=== PATIENT | female | born 1995 | race American Indian/Alaskan Native ===

== ENCOUNTER 2016-11-03 22:11 | Emergency (ER) | payer OTHER ==
[2016-11-03 22:26] VITALS: BP 137/67
[2016-11-03 22:57] LABS: CHLORIDE,CL 106 mmol/L (101-111); SODIUM,NA 139 mmol/L (135-145)
--- NOTE | 2016-11-03 23:19 | EDM.PDOC ---
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 The patient reports she started to have some brownish discharge last Wednesday evening. 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 The patient's HCG level was 3289 based on the clinic lab results from today. Onset: Today Duration: Constant, Getting Worse Location: Reports: Abdomen (LLQ) Severity: Moderate Improves with: Reports: None Worsens with: Reports: None Left Lower Abdomen Pain Score (Numeric/FACES): 6 - Related Data Allergies Allergy/AdvReac Type Severity Reaction Status Date / Time No Known Allergies Allergy Verified 11/03/16 22:22 Home Meds: Home Meds . 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 LMP 09/16/16 Musculoskeletal History: Reports: None Neurological History: Reports: None Psychiatric History: Reports: None Endocrine/Metabolic History: Reports: None Hematologic History: Reports: None Immunologic History: Reports: None Oncologic (Cancer) History: Reports: None Dermatologic History: Reports: None ED ROS GENERAL - Review of Systems Review Of Systems: ROS reveals no pertinent complaints other than HPI. ED EXAM, GI/ABD - Physical Exam Exam: See Below Exam Limited By: No Limitations General Appearance: Alert, WD/WN, Moderate Distress Eyes: Bilateral: Normal Appearance, EOMI Ears: Normal External Exam, Normal Canal, Hearing Grossly Normal, Normal TMs Throat/Mouth: Normal Inspection, Normal Lips, Normal Teeth, Normal Gums, Normal Oropharynx, Normal Voice, No Airway Compromise Head: Atraumatic, Normocephalic Neck: Normal Inspection, Supple, Non-Tender, Full Range of Motion Respiratory/Chest: No Respiratory Distress, Lungs Clear, Normal Breath Sounds, No Accessory Muscle Use, Chest Non-Tender Cardiovascular: Normal Peripheral Pulses, Regular Rate, Rhythm, No Edema, No Gallop, No JVD, No Murmur, No Rub GI/Abdominal Exam: Normal Bowel Sounds, No Organomegaly, No Distention, No Abnormal Bruit, No Mass, Pelvis Stable, Tender (left lower quadrant) (Female) Exam: Deferred Rectal (Female) Exam: Deferred Back Exam: Normal Inspection, Full Range of Motion, NT Extremities: Normal Inspection, Normal Range of Motion, Non-Tender, Normal Capillary Refill, No Pedal Edema Neurological: Alert, Oriented, CN II-XII Intact, Normal Cognition, Normal Gait, Normal Reflexes, No Motor/Sensory Deficits Psychiatric: Normal Affect, Normal Mood Skin Exam: Warm, Dry, Intact, Normal Color, No Rash Lymphatic: No Adenopathy Course - Vital Signs Last Recorded V/S: Last Vital Signs Temp 36.3 C 11/03/16 22:23 Pulse 66 11/03/16 22:23 Resp 18 11/03/16 22:23 BP 137/67 11/03/16 22:23 Pulse Ox 99 11/03/16 22:23 - Orders/Labs/Meds Orders: Active Orders 24 hr Category Date Time Status OB Ltd 1 or More Fetus [US] Urgent Exams 11/03/16 23:15 Ordered OB Transvaginal [US] Urgent Exams 11/03/16 23:15 Ordered Labs: Laboratory Tests 11/03/16 11/03/16 11/03/16 Range/Units 22:33 22:33 22:33 WBC 8.4 (5.0-10.0) 10^3/uL RBC 4.10 L (4.2-5.4) 10^6/uL Hgb 11.7 L (12.0-16.0) g/dL Hct 35.2 L (37.0-47.0) % MCV 85.9 (80-100) fL MCH 28.5 (27.0-34.0) pg MCHC 33.2 (33.0-35.0) g/dL Plt Count 247 (150-450) 10^3/uL Neut % (Auto) 58.9 (42.2-75.2) % Lymph % (Auto) 29.6 (20.5-50.1) % Glynn % (Auto) 9.2 H (2-8) % Eos % (Auto) 2.3 (1.0-3.0) % Baso % (Auto) 0.0 (0.0-1.0) % Sodium 139 (135-145) mmol/L Potassium 3.5 L (3.6-5.0) mmol/L Chloride 106 (101-111) mmol/L Carbon Dioxide 23.0 (21.0-31.0) mmol/L Anion Gap 13.5 BUN 9 (7-18) mg/dL Creatinine 0.9 (0.6-1.3) mg/dL Est Cr Clr Drug Dosing 86.45 mL/min Estimated GFR (MDRD) > 60 BUN/Creatinine Ratio 10.00 Glucose 109 H (74-105) mg/dL Calcium 8.9 (8.4-10.2) mg/dl Total Bilirubin 0.4 (0.2-1.0) mg/dL AST 28 (10-42) IU/L ALT 25 (10-60) IU/L Alkaline Phosphatase 43 (42-121) IU/L Total Protein 6.9 (6.7-8.2) g/dl Albumin 4.0 (3.2-5.5) g/dl Globulin 2.9 Albumin/Globulin Ratio 1.38 HCG, Quant > 1371 H (0-25) mIU/ml Beta HCG, Quant 2956 mIU/ml Urine Color (YELLOW) Urine Appearance (CLEAR) Urine pH (5.0-9.0) Ur Specific Mcgregor (1.005-1.030) Urine Protein (NEGATIVE) Urine Glucose (UA) (NEGATIVE) Urine Ketones (NEGATIVE) Urine Occult Blood (NEGATIVE) Urine Nitrite (NEGATIVE) Urine Bilirubin (NEGATIVE) Urine Urobilinogen (0.2-1.0) mg/dL Ur Leukocyte Esterase (NEGATIVE) Urine RBC /HPF Urine WBC (0-5/HPF) /HPF Ur Epithelial Cells /HPF Urine Bacteria (0-FEW/HPF) /HPF Urine Mucus /LPF 11/04/16 Range/Units 00:04 WBC (5.0-10.0) 10^3/uL RBC (4.2-5.4) 10^6/uL Hgb (12.0-16.0) g/dL Hct (37.0-47.0) % MCV (80-100) fL MCH (27.0-34.0) pg MCHC (33.0-35.0) g/dL Plt Count (150-450) 10^3/uL Neut % (Auto) (42.2-75.2) % Lymph % (Auto) (20.5-50.1) % Glynn % (Auto) (2-8) % Eos % (Auto) (1.0-3.0) % Baso % (Auto) (0.0-1.0) % Sodium (135-145) mmol/L Potassium (3.6-5.0) mmol/L Chloride (101-111) mmol/L Carbon Dioxide (21.0-31.0) mmol/L Anion Gap BUN (7-18) mg/dL Creatinine (0.6-1.3) mg/dL Est Cr Clr Drug Dosing mL/min Estimated GFR (MDRD) BUN/Creatinine Ratio Glucose (74-105) mg/dL Calcium (8.4-10.2) mg/dl Total Bilirubin (0.2-1.0) mg/dL AST (10-42) IU/L ALT (10-60) IU/L Alkaline Phosphatase (42-121) IU/L Total Protein (6.7-8.2) g/dl Albumin (3.2-5.5) g/dl Globulin Albumin/Globulin Ratio HCG, Quant (0-25) mIU/ml Beta HCG, Quant mIU/ml Urine Color Yellow (YELLOW) Urine Appearance Slightly cloudy (CLEAR) Urine pH 6.5 (5.0-9.0) Ur Specific Mcgregor 1.020 (1.005-1.030) Urine Protein Negative (NEGATIVE) Urine Glucose (UA) Negative (NEGATIVE) Urine Ketones Negative (NEGATIVE) Urine Occult Blood Moderate H (NEGATIVE) Urine Nitrite Negative (NEGATIVE) Urine Bilirubin Negative (NEGATIVE) Urine Urobilinogen 0.2 (0.2-1.0) mg/dL Ur Leukocyte Esterase Negative (NEGATIVE) Urine RBC >100 H /HPF Urine WBC 0-5 (0-5/HPF) /HPF Ur Epithelial Cells Few /HPF Urine Bacteria Moderate H (0-FEW/HPF) /HPF Urine Mucus Moderate H /LPF Departure - Departure Time of Disposition: :05 Disposition: Home, Self-Care 01 Condition: Fair Clinical Impression: Spontaneous - Discharge Information Instructions: Miscarriage, [id number] Forms: ED Department Discharge Care Plan Goals: The patient was advised of the examination, lab and ultrasound results during the visit. The patient was encouraged to follow-up with her primary care facility. If the patient has any additional symptoms or further concerns, the patient should either follow-up with her primary care facility or return to the emergency department. - My Orders Last 24 Hours: My Active Orders 11/03/16 23:15 OB Ltd 1 or More Fetus [US] Urgent OB Transvaginal [US] Urgent - Assessment/Plan Last 24 Hours: My Active Orders 11/03/16 23:15 OB Ltd 1 or More Fetus [US] Urgent OB Transvaginal [US] Urgent
== END 2016-11-04 01:12 | disposition home or self-care (01) ==
LOC: DL.ED 22:11
DX: O03.9 Complete or unspecified spontaneous abortion without complication (principal)
CPT/HCPCS: 36415; 76815; 76817; 80053; 81001; 84702; 85025; 99284

== ENCOUNTER 2016-11-16 08:59 | Emergency (ER) | payer OTHER ==
[2016-11-16] MEDS ORDERED: Sodium Chloride 0.9% 1,000 ML IV ONE (09:25)
--- NOTE | 2016-11-16 09:28 | EDM.PDOC ---
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 Pt. states blood was dark red until Wednesday (3) days ago, and then started with mre abdomen cramps and bright red vaginal bleeding. Pt. denies fever or chills or dizziness Pt. receive care fro Dr. Leone. Onset Date: 11/02/16 Onset Time: 06:00 Duration: Week(s): Location: Reports: Abdomen, Pelvis Quality: Reports: Ache (abdomen) Severity: Mild Worsens with: Reports: None Associated Symptoms: Reports: No Other Symptoms Left Abdomen Pain Score (Numeric/FACES): 3 - Related Data Allergies Allergy/AdvReac Type Severity Reaction Status Date / Time No Known Allergies Allergy Verified 11/16/16 09:15 Home Meds: Home Meds Folic Acid/Multivit-Min/Lutein [Multi-Vitamin Gummies] 1 tab PO DAILY 11/16/16 [ History] Past Medical History HEENT History: Reports: None Cardiovascular History: Reports: None Respiratory History: Reports: None Gastrointestinal History: Reports: None Genitourinary History: Reports: None 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 LMP 09/16/16, [place] November 03-2016 Musculoskeletal History: Reports: None Neurological History: Reports: None Psychiatric History: Reports: None Endocrine/Metabolic History: Reports: None Hematologic History: Reports: None Immunologic History: Reports: None Oncologic (Cancer) History: Reports: None Dermatologic History: Reports: None - Infectious Disease History Infectious Disease History: Reports: Chicken Pox - Past Surgical History Head Surgeries/Procedures: Reports: None Social & Family History - Tobacco Use Smoking Status *Q: Never Smoker Second Hand Smoke Exposure: No - Caffeine Use Caffeine Use: Reports: Coffee - Recreational Drug Use Recreational Drug Use: No ED ROS GENERAL - Review of Systems Review Of Systems: See Below Constitutional: Reports: No Symptoms HEENT: Reports: No Symptoms Respiratory: Reports: No Symptoms Cardiovascular: Reports: No Symptoms Endocrine: Reports: No Symptoms GI/Abdominal: Reports: Abdominal Pain (low abd cramps) : Reports: Other (vaginal blood) Musculoskeletal: Reports: No Symptoms Skin: Reports: No Symptoms Neurological: Reports: No Symptoms Psychiatric: Reports: No Symptoms Hematologic/Lymphatic: Reports: No Symptoms Immunologic: Reports: No Symptoms ED EXAM - Physical Exam Exam: See Below Exam Limited By: No Limitations General Appearance: Alert, WD/WN, No Apparent Distress Eye Exam: Bilateral Eye: EOMI Ears: Normal External Exam Nose: Normal Inspection Throat/Mouth: Normal Inspection Head: Atraumatic Neck: Normal Inspection Respiratory/Chest: No Respiratory Distress, Lungs Clear Cardiovascular: Normal Peripheral Pulses, Regular Rate, Rhythm GI/Abdominal Exam: Normal Bowel Sounds, Soft (Female) Exam: Vaginal Bleeding (dark blood w/o active bleeding and cervical os closed) Back Exam: Normal Inspection Extremities: Normal Inspection, Normal Range of Motion Neurological: Alert, Oriented, CN II-XII Intact Psychiatric: Normal Affect Skin Exam: Warm, Dry Lymphatic: No Adenopathy Course - Vital Signs Text/Narrative:: Pt. had ob ultrasound due to rising serum beta-HCG Pt. to transfer to 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 Peters Last Recorded V/S: Last Vital Signs Temp 36.3 C 11/16/16 09:09 Pulse 79 11/16/16 09:09 Resp 16 11/16/16 09:09 BP 120/64 11/16/16 09:09 Pulse Ox 99 11/16/16 09:09 - Orders/Labs/Meds Labs: Laboratory Tests 11/16/16 11/16/16 11/16/16 Range/Units 09:36 09:36 09:36 WBC 9.3 (5.0-10.0) 10^3/uL RBC 4.16 L (4.2-5.4) 10^6/uL Hgb 12.1 (12.0-16.0) g/dL Hct 35.7 L (37.0-47.0) % MCV 85.8 (80-100) fL MCH 29.1 (27.0-34.0) pg MCHC 33.9 (33.0-35.0) g/dL Plt Count 235 (150-450) 10^3/uL Neut % (Auto) 74.2 (42.2-75.2) % Lymph % (Auto) 17.0 L (20.5-50.1) % Norton % (Auto) 6.9 (2-8) % Eos % (Auto) 1.8 (1.0-3.0) % Baso % (Auto) 0.1 (0.0-1.0) % HCG, Qual Positive HCG, Quant (0-25) mIU/ml Beta HCG, Quant mIU/ml Blood Type B POSITIVE 11/16/16 Range/Units 09:36 WBC (5.0-10.0) 10^3/uL RBC (4.2-5.4) 10^6/uL Hgb (12.0-16.0) g/dL Hct (37.0-47.0) % MCV (80-100) fL MCH (27.0-34.0) pg MCHC (33.0-35.0) g/dL Plt Count (150-450) 10^3/uL Neut % (Auto) (42.2-75.2) % Lymph % (Auto) (20.5-50.1) % Norton % (Auto) (2-8) % Eos % (Auto) (1.0-3.0) % Baso % (Auto) (0.0-1.0) % HCG, Qual HCG, Quant > 1371 H (0-25) mIU/ml Beta HCG, Quant 6628 mIU/ml Blood Type Meds: Medications Discontinued Medications Generic Name Dose Route Start Last Admin Trade Name Tammy PRN Reason Stop Dose Admin Sodium Chloride 1,000 mls @ 999 mls/hr 11/16/16 09:25 11/16/16 09:35 Normal Saline IV 11/16/16 10:25 999 mls/hr .BOLUS ONE Administration Departure - Departure Time of Disposition: 14:34 Disposition: DC/Tfer to Other 70 Condition: Fair Clinical Impression: Ectopic , tubal Qualifiers: Intrauterine status: with intrauterine Qualified Code(s): O00.11 - Tubal with intrauterine - Discharge Information Forms: ED Department Discharge, Interfacility Transfer EMTALA
[2016-11-16 14:38] VITALS: BP 119/46
[2016-11-16] MEDS ORDERED: Sodium Chloride 0.9% 1,000 ML IV SCH (14:45)
== END 2016-11-16 14:55 | disposition other institution (70) ==
LOC: DL.ED 08:59
DX: O00-O9A Pregnancy, childbirth and the puerperium (principal)
CPT/HCPCS: 36415; 76816; 76817; 84702; 84703; 85025; 86900; 86901; 96360; 99285; J7030

== ENCOUNTER 2020-03-09 12:10 | Emergency (ER) | payer OTHER ==
[2020-03-09 12:21] VITALS: BP 126/81; PULSE 99
--- NOTE | 2020-03-09 12:50 | CR ---
EXAMINATION: Wrist Comp Min 3V Rt SEX: Female AGE: 25 years CLINICAL HISTORY: 25-year-old female injured right wrist (fall). Interpretation: Negative. 1. Homogeneous normal bone density for age and gender. 2. No sign of right wrist fracture or dislocation. 3. No metacarpal abnormalities. 4. Distal radius/ulna unremarkable. 5. No foreign bodies.
--- NOTE | 2020-03-09 13:02 | EDM.PDOC ---
Scribed by Fe Toussaint 03/09/20 1249 for Lizandro Dash MD ED HPI GENERAL MEDICAL PROBLEM - General Chief Complaint: Upper Extremity Injury/Pain Stated Complaint: INJURED RIGHT ARM Time Seen by Provider: 03/09/20 12:25 Source of Information: Reports: Patient, RN, RN Notes Reviewed History Limitations: Reports: No Limitations - History of Present Illness INITIAL COMMENTS - FREE TEXT/NARRATIVE: Patient presents to ED by POV. Patient states at 0500 she fell and landed on her right arm trying to catch herself. She states that since doing this it has caused pain to the right forearm. Patient is able to move arm but causes pain. The pain is midshaft worse with pronation and supination. It does not involve the wrist. Patient did not experience any crepitus in the extremity after the injury. Patient also states it is difficult to close and open her hand because the action causes pain in her forearm. Denies loss of consciousness, other injury, numbness or tingling in her extremities, bruising or bleeding, syncope, fever, cough, chills, drugs or alcohol. Onset: Today Duration: Getting Worse Location: Reports: Upper Extremity, Right Quality: Reports: Ache Severity: Moderate Improves with: Reports: None Worsens with: Reports: None Associated Symptoms: Reports: No Other Symptoms - Related Data Allergies Allergy/AdvReac Type Severity Reaction Status Date / Time No Known Allergies Allergy Verified 03/09/20 12:21 Home Meds: Home Meds . 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 LMP 09/16/16, [place] November [id number] Musculoskeletal History: Reports: None Neurological History: Reports: None Psychiatric History: Reports: None Endocrine/Metabolic History: Reports: None Hematologic History: Reports: None Immunologic History: Reports: None Oncologic (Cancer) History: Reports: None Dermatologic History: Reports: None - Infectious Disease History Infectious Disease History: Reports: Chicken Pox - Past Surgical History Head Surgeries/Procedures: Reports: None Social & Family History - Tobacco Use Tobacco Use Status *Q: Never Tobacco User Second Hand Smoke Exposure: No - Caffeine Use Caffeine Use: Reports: Coffee - Recreational Drug Use Recreational Drug Use: No Review of Systems - Review of Systems Review Of Systems: Comprehensive ROS is negative, except as noted in HPI. ED EXAM, GENERAL - Physical Exam Exam: See Below Exam Limited By: No Limitations General Appearance: Alert, WD/WN, No Apparent Distress Throat/Mouth: Normal Inspection, Normal Lips, Normal Teeth, Normal Gums, Normal Oropharynx, Normal Voice, No Airway Compromise Head: Atraumatic, Normocephalic Neck: Normal Inspection, Supple, Non-Tender, Full Range of Motion Respiratory/Chest: No Respiratory Distress, Lungs Clear, Normal Breath Sounds, No Accessory Muscle Use, Chest Non-Tender Cardiovascular: Normal Peripheral Pulses, Regular Rate, Rhythm Extremities: Other (right forearm pain. ) Neurological: Alert, Oriented Psychiatric: Normal Affect Skin Exam: Warm, Dry, Intact Course - Vital Signs Last Recorded V/S: Last Vital Signs Temp 99.3 F 03/09/20 12:15 Pulse 99 03/09/20 12:15 Resp 18 03/09/20 12:15 BP 126/81 03/09/20 12:15 Pulse Ox 99 03/09/20 12:15 - Radiology Interpretation Free Text/Narrative:: XR Rt wrist: no acute fracture per Rad. report. Departure - Departure Time of Disposition: 13:00 Disposition: Home, Self-Care 01 Condition: Good Clinical Impression: Contusion of right forearm, initial encounter - Discharge Information *PRESCRIPTION DRUG MONITORING PROGRAM REVIEWED*: Not Applicable *COPY OF PRESCRIPTION DRUG MONITORING REPORT IN PATIENT ODESSA: Not Applicable Instructions: Contusion, [id number] Forms: ED Department Discharge Additional Instructions: Ice to area of right arm pain as needed to reduce pain and swelling. May use over the counter Ibuprofen (Motrin/Advil) 200mg: Take 3 to 4 tablets by mouth every 8 hours as needed. Take with food. Activity as tolerated. Sepsis Event Note (ED) - Evaluation Sepsis Screening Result: No Definite Risk - Focused Exam Vital Signs: Vital Signs Temp Pulse Resp BP Pulse Ox 03/09/20 12:15 99.3 F 99 18 126/81 99 I have read and agree with the documentation that has been completed regarding this visit. By signing this record, I attest that the documentation was completed in my physical presence and is an accurate record of the encounter.
== END 2020-03-09 13:07 | disposition home or self-care (01) ==
LOC: DL.ED 12:10
DX: S50.11XA Contusion of right forearm, initial encounter (principal); W19.XXXA Unspecified fall, initial encounter
CPT/HCPCS: 73110-RT; 99282; 99283